=== PATIENT | male | born 1965 | race Caucasian/White ===

== ENCOUNTER 2023-10-17 07:47 | Emergency (ER) | payer OTHER ==
[2023-10-17 08:04] VITALS: BP 154/88; PULSE 102; RESP 16; TEMP 98.4; BMI 30.5
[2023-10-17] MEDS ORDERED: KETOROLAC TROMETHAMINE 15 MG/ML VIAL IVPUSH ONE (08:26)
[2023-10-17] MEDS ORDERED: KETOROLAC TROMETHAMINE 15 MG/ML VIAL ONE (08:39)
[2023-10-17 09:07] LABS: EOS % 0.6 % (0-4.5); HEMATOCRIT 40.5 % (35.4-49); HEMOGLOBIN 13.7 GM/dL (11.7-16.9); MCH 29.6 pg (25.7-33.7); MCHC 33.8 g/dl (32.0-35.9); MEAN CELL VOLUME 87.7 fl (80-96); MEAN PLT VOLUME 8.8 fl (7.5-11.1); MONO % 7.8 % (3.8-10.2); NEUT % 72.6 % (42.8-82.8); PLATELET COUNT 242 10^3/uL (134-434); RBC 4.62 M/mm3 (4.00-5.60); RDW 14.1 % (11.9-15.9); WHITE BLOOD COUNT 9.2 K/mm3 (4.0-10.0)
[2023-10-17 09:12] LABS: INR 1.07 (0.83-1.09); PROTHROMBIN TIME (PATIENT) 12.4 SEC (9.7-13.0)
[2023-10-17 09:20] LABS: POTASSIUM 4.8 mmol/L (3.5-5.1)
[2023-10-17 09:22] LABS: CALCIUM 9.6 mg/dL (8.5-10.1)
[2023-10-17 09:23] LABS: ALBUMIN 3.5 g/dl (3.4-5.0); BLOOD UREA NITROGEN 7.3 mg/dL (7-18)
[2023-10-17 09:25] LABS: CREATININE 0.9 mg/dL (0.55-1.3)
[2023-10-17 09:27] LABS: BILIRUBIN,TOTAL 0.4 mg/dL (0.2-1)
== END 2023-10-17 11:24 | disposition home or self-care (01) ==
LOC: JERFT 07:47
PROC: 3E033NZ Introduction of Analgesics, Hypnotics, Sedatives into Peripheral Vein, Percutaneous Approach (ICD-10-PCS; principal; 2023-10-17)
DX: M79.604 Pain in right leg (principal); R10.31 Right lower quadrant pain
CPT/HCPCS: 36415; 74177-TC; 80053; 85025; 85610; 86850; 86900; 86901; 99285-25; Q9967